=== PATIENT | female | born 1980 | race Caucasian/White ===

== ENCOUNTER 2017-09-04 15:13 | Emergency (ER) | payer MEDICAID, SELFPAY ==
[2017-09-04 15:14] VITALS: BP 138/77; PULSE 89; RESP 16; TEMP 36.7; O2SAT 97
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
[2017-09-04] MEDS: Ibuprofen 600 MG Tablet PO (16:28)
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
[2017-09-04 17:04] VITALS: RESP 18
== END 2017-09-04 17:06 | disposition home or self-care (01) ==
PROVIDERS: Emergency Provider Emergency Medicine; Family Provider Family Medicine; PCP Family Medicine
DX: S00.11XA Contusion of right eyelid and periocular area, initial encounter (principal); S50.01XA Contusion of right elbow, initial encounter; S40.021A Contusion of right upper arm, initial encounter; R40.2410 Glasgow coma scale score 13-15, unspecified time; Y04.2XXA Assault by strike against or bumped into by another person, initial encounter; Y93.9 Activity, unspecified; Y92.9 Unspecified place or not applicable; Z90.89 Acquired absence of other organs
CPT/HCPCS: 70450; 70486; 73080; 99283

== ENCOUNTER 2017-10-27 16:10 | Emergency (ER) | payer MEDICAID, SELFPAY ==
[2017-10-27 16:11] VITALS: BP 100/75; PULSE 85; RESP 16; TEMP 36.6; O2SAT 99; BMI 20.7
[2017-10-27] MEDS: HYDROmorphone 1 MG/ML Syringe IV (16:33)
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
--- NOTE | 2017-10-27 17:21 | ED.DEP ---
ED Disposition - Plan for ED Patient: Chief Complaint: Abscess Instructions: ED Abscess IandD, ED Bartholins Cyst IandD Prescriptions: Hydrocodone Bitart/Apap 5-325 [[place] 5MG-325MG] 1 tablet PO Q6H PRN PRN 3 Days #10 tablet PRN Reason: Pain Clindamycin [Cleocin] 450 mg PO 4X/DAY #84 capsule Referrals: Sabi Moyer CNM [Certified Nurse Cytotechnologist] - 2 Days
[2017-10-27] MEDS: Clindamycin HCl 150 MG Capsule 450 MG PO (17:24)
[2017-10-27] MEDS: HYDROcodone Bitartrate/Apap 5/325 Tablet PO (17:24)
--- NOTE | 2017-10-27 17:24 | DCINST.ED_ITS ---
ED Disposition - Plan for ED Patient: Chief Complaint: Abscess Instructions: ED Abscess IandD, ED Bartholins Cyst IandD Prescriptions: Hydrocodone Bitart/Apap 5-325 [[place] 5MG-325MG] 1 tablet PO Q6H PRN PRN 3 Days # 10 tablet PRN Reason: Pain Clindamycin [Cleocin] 450 mg PO 4X/DAY #84 capsule Referrals: Sabi Moyer CNM [Certified Nurse Bicycle Fitter] - 2 Days
[2017-10-27 17:43] VITALS: BP 113/73; PULSE 16
== END 2017-10-27 17:45 | disposition home or self-care (01) ==
LOC: ED 16:44
PROVIDERS: Emergency Provider Emergency Medicine; Family Provider Family Medicine; PCP Family Medicine
DX: N75.0 Cyst of Bartholin's gland (principal); N76.2 Acute vulvitis
CPT/HCPCS: 56420; 10060; 96374; 99285; A4216

== ENCOUNTER 2018-01-30 07:42 | Emergency (ER) | payer MEDICAID, SELFPAY ==
[2018-01-30 07:42] VITALS: BP 115/69; PULSE 81; RESP 18; TEMP 36.6; O2SAT 99; BMI 20.7
--- NOTE | 2018-01-30 07:54 | ED.VISSUMM ---
- ER Visit Summary Date of Service: 01/30/18 Chief Complaint: Upper and mid back pain History of Present Illness: The patient is a 38 F prior history of DVT secondary to control pills currently on no anticoagulation. States that they were cutting down trees yesterday and moving them. She was carrying branches and logs. Today she is developed upper back and mid back discomfort. She denies any numbness or weakness. She denies any bowel or bladder incontinence. She denies any fever. She denies any trauma or falls. She denies any weakness or numbness in her lower extremities. She has never had back surgery. Physical Examination: Well-appearing female. Vital signs are stable afebrile. H EENT exam unremarkable. Neck nontender. No lymphadenopathy. Normal range of motion. Lungs clear to auscultation. Heart regular rhythm no murmur. Abdomen soft and nontender. Normal bowel sounds no peritoneal signs. She is moving all 4 extremities. They are neurovascularly intact. No cauda equina. No saddle anesthesia. Normal 5 out of 5 therapeutic riding instructor strength in both hands. Normal dorsi and plantar flexion of both lower extremities. Normal sensation. Back exam there is no spine tenderness. There is para thoracic soft tissue tenderness and in the upper back. This is consistent with muscle strain and spasm. There are no bony deformities. There are no bruising. There is no redness or discoloration. She has a large tattoo on her back. Neurologically she is awake alert with no focal motor or sensory deficits. NIH score is 0. Test Results: None Emergency Department Course and Treatment: Patient will be treated for myofascial strain and spasm. Treatment Plan: Massage. Hot shower, warm bath and anti-inflammatories. Flexeril as needed for muscle spasm. Disposition: Discharge Impression: Acute back pain and muscle spasm This note was generated with [employer] dictation software. It may contain incorrect words, spelling, and punctuation that were not noted in review of the chart prior to signing ED Disposition - Plan for ED Patient: Chief Complaint: Back Referrals: Kobe Rey MD [Primary Care Provider] -
--- NOTE | 2018-01-30 07:57 | ED.DCSUM_ITS ---
- ER Visit Summary Date of Service: 01/30/18 Chief Complaint: Upper and mid back pain History of Present Illness: The patient is a 38 F prior history of DVT secondary to control pills currently on no anticoagulation. States that they were cutting down trees yesterday and moving them. She was carrying branches and logs. Today she is developed upper back and mid back discomfort. She denies any numbness or weakness. She denies any bowel or bladder incontinence. She denies any fever. She denies any trauma or falls. She denies any weakness or numbness in her lower extremities. She has never had back surgery. Physical Examination: Well-appearing female. Vital signs are stable afebrile. H EENT exam unremarkable. Neck nontender. No lymphadenopathy. Normal range of motion. Lungs clear to auscultation. Heart regular rhythm no murmur. Abdomen soft and nontender. Normal bowel sounds no peritoneal signs. She is moving all 4 extremities. They are neurovascularly intact. No cauda equina. No saddle anesthesia. Normal 5 out of 5 research and development director strength in both hands. Normal dorsi and plantar flexion of both lower extremities. Normal sensation. Back exam there is no spine tenderness. There is para thoracic soft tissue tenderness and in the upper back. This is consistent with muscle strain and spasm. There are no bony deformities. There are no bruising. There is no redness or discoloration. She has a large tattoo on her back. Neurologically she is awake alert with no focal motor or sensory deficits. NIH score is 0. Test Results: None Emergency Department Course and Treatment: Patient will be treated for myofascial strain and spasm. Treatment Plan: Massage. Hot shower, warm bath and anti-inflammatories. Flexeril as needed for muscle spasm. Disposition: Discharge Impression: Acute back pain and muscle spasm This note was generated with [employer] dictation software. It may contain incorrect words, spelling, and punctuation that were not noted in review of the chart prior to signing ED Disposition - Plan for ED Patient: Chief Complaint: Back Referrals: Kobe Rey MD [Primary Care Provider] -
--- NOTE | 2018-01-30 07:57 | ED.DEP ---
ED Disposition - Plan for ED Patient: Disposition: Home or Assisted Living Chief Complaint: Back Instructions: ED Spasm Back No Trauma Prescriptions: Cyclobenzaprine [Flexeril] 10 mg PO TID #20 tab Referrals: Kobe Rey MD [Primary Care Provider] - 1 Week if not improving Additional Instructions: Hot shower, warm bath, and massage to her back. Motrin for pain and inflammation. Flexeril as a muscle relaxant.
== END 2018-01-30 08:10 | disposition home or self-care (01) ==
LOC: ED 08:03
PROVIDERS: Emergency Provider Emergency Medicine; Family Provider Family Medicine; PCP Family Medicine
DX: M54.9 Dorsalgia, unspecified (principal); M62.830 Muscle spasm of back; Z86.718 Personal history of other venous thrombosis and embolism; F17.200 Nicotine dependence, unspecified, uncomplicated
CPT/HCPCS: 99282

== ENCOUNTER 2018-05-28 08:51 | Emergency (ER) | payer MEDICAID, SELFPAY ==
[2018-05-28 08:51] VITALS: BP 121/88; PULSE 101; RESP 18; TEMP 36.6; O2SAT 100; BMI 20.1
--- NOTE | 2018-05-28 09:09 | RAD_ITS ---
STUDY: X-RAY CHEST REASON FOR EXAM: Female, 38 years old. COUGH, FEVER, CONGESTION X 2 DAYS TECHNIQUE: PA and lateral views of the chest. COMPARISON: None. FINDINGS: The lungs are clear and expanded. There is no demonstrated pleural abnormality. Normal size heart. Normal mediastinum and sushil. Normal visualized pulmonary arteries. Normal visualized aortic arch and descending thoracic aorta. There is a mild broad dextroscoliosis of the thoracic spine. Normal visualized ribs, clavicles, and shoulders. There is no demonstrated abnormality of the visualized soft tissue structures of the upper abdomen. RAD/Chest PA and Lateral IMPRESSION: Normal x-ray examination of the chest. No focal lung infiltrate. Electronically Signed: Staci Yu MD at 9:48 EST , Service support ,
--- NOTE | 2018-05-28 09:14 | ED.DCSUM_ITS ---
- ER Visit Summary Date of Service: 05/28/18 Chief Complaint: Cough History of Present Illness: The patient is a 38 F no significant past medical history. Patient says she has had URI type symptoms for approximately the last week. She is been doing a lot of coughing. Says she has left chest wall pain w ith deep breathing or coughing. States that the nonproductive cough. She subjectively had a fever. She denies any hemoptysis. Leg pain or swelling. She is never had a DVT or PE. She denies any significant shortness of breath. Physical Examination: Appearing female. Vital signs are stable. She is afebrile. Pulse ox 100% on room air no signs of hypoxia. HEENT exam normal. Posterior pharynx moist and pink. No erythema or exudate. TMs are normal. Neck nontender. No lymphadenopathy. Lungs clear to auscultation bilaterally. Heart regular rhythm no murmur. Chest wall reproducible left chest wall pain in the left upper chest. There is no ecchymosis or bruising. No crepitance. No bony deformities. No subcu air. This appears to be a chest wall strain. Ab domen soft nontender. Normal bowel sounds no peritoneal signs. Extremities moves all 4. Neurovascular intact. Equal symmetrical radial pulses. Equal symmetrical white hat hacker strength. Dorsi plantar flexion intact. Calves nontender no edema. Back exam normal. Neurologically she is awake alert with no focal motor deficits. Test Results: Two-view chest x-ray AP and lateral was normal. Normal cardiac silhouette. No infiltrate. No pneumothorax. Normal bony structures. I did go over the films with the patient. Emergency Department Course and Treatment: Viral URI treated symptomatically. Treatment Plan: Motrin and Tylenol for pain. Disposition: Discharge Impression: Acute viral respiratory infection with chest wall strain This note was generated with [employer] dictation software. It may contain incorrect words, spelling, and punctuation that were not noted in review of the chart prior to signing ED Disposition - Plan for ED Patient: Chief Complaint: Cold Sx Referrals: Kobe Rey MD [Primary Care Provider] -
--- NOTE | 2018-05-28 09:42 | ED.DEP ---
ED Disposition - Plan for ED Patient: Disposition: Home or Assisted Living Chief Complaint: Cold Sx Instructions: ED Upper Resp Infec No Abx Tx, ED Strain Chest Wall Referrals: Kobe Rey MD [Primary Care Provider] - As Needed Additional Instructions: Light duty for 1 week. You have strained muscles in your left upper chest wall. Ice to the area. Tylenol and Motrin for pain.
[2018-05-28 09:59] VITALS: BP 124/69; PULSE 72; RESP 15; O2SAT 99
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
== END 2018-05-28 10:01 | disposition home or self-care (01) ==
PROVIDERS: Emergency Provider Emergency Medicine; Family Provider Family Medicine; PCP Family Medicine
DX: J06.9 Acute upper respiratory infection, unspecified (principal); S29.011A Strain of muscle and tendon of front wall of thorax, initial encounter; X58.XXXA Exposure to other specified factors, initial encounter; Y93.9 Activity, unspecified; Y92.9 Unspecified place or not applicable; Z72.0 Tobacco use
CPT/HCPCS: 71046; 99282

== ENCOUNTER 2020-02-09 17:48 | Emergency (ER) | payer MEDICAID, SELFPAY ==
[2020-02-09 17:49] VITALS: BP 127/83; PULSE 97; RESP 16; TEMP 36.6; O2SAT 99; BMI 20.3
--- NOTE | 2020-02-09 18:00 | ED.VIS.GEN ---
History of Present Illness Chief Complaint: Back Informant: Patient Narrative: 40-year-old female presenting with right upper back muscle spasms. She states this occurred when she woke up from sleep. She denies any trauma. She is never had a symptom like this before. She denies medical problems. She states that when she takes a deep breath the pain radiates into her ribs. She does not have shortness of breath, cough, fever, chills. Past Medical History - Allergies and Home Meds Allergies/Adverse Reactions: Allergies diphenhydramine [From Benadryl] Allergy (Verified 02/09/20 17:48) Vomiting Primary Care Physician: Kobe Rey MD [Primary Care Provider] - Prior records reviewed: Yes Surgical History: appendectomy, - - section Lives: Spouse/ Significant Other Smoking Status: Former smoker Alcohol: None Drugs: None - Family History Maternal Family History: Reports: No pertinent history Paternal Family History: Reports: No pertinent history Review of Systems General: Denies: Chills, Fever, Sweats Eyes: Denies: Visual changes - bilaterally, Diplopia ENT: Denies: Rhinorrhea, Sore throat Cardiovascular: Denies: Chest pain, Palpitations Respiratory: Denies: Dyspnea, Cough, Dyspnea on exertion Gastrointestinal: Denies: Abdominal pain, Nausea, Vomiting, Diarrhea, Melena, Hematochezia Genitourinary: Denies: Dysuria, Hematuria, Frequency Musculoskeletal: Reports: - - Upper back pain Skin: Denies: Rash, Abscess Physical Exam Vital Signs/Narrative: Vital Signs Temp Pulse Resp BP Pulse Ox 02/09/20 17:49 97.8 F 97 16 127/83 H 99 General: Well nourished, Well developed, No Acute Distress Head: Normocephalic, Atraumatic Eyes: Perrl, EOMI ENT: Moist mucous membranes, No rhinorrhea Cardiovascular: Regular rate, Regular rhythm, No murmurs Respiratory: No distress, CTA bilaterally, Chest nontender Back: - - Tenderness to palpation in the right thoracic paraspinal musculature. There is no midline spinal tenderness, deformity, step-off. Skin: Normal color, No rash Neurological: Alert, Oriented x3 Psychological: Normal affect, Normal Mood Diagnostic/Tx/Re-eval Clinical Impression(s) from Imaging Studies Ribs w/Chest X-Ray 02/09/20 18:05 IMPRESSION: RIBS: Normal x-ray examination of the ribs. CHEST: Normal x-ray examination of the chest. Electronically Signed: Maurilio Ayde, at 18:30 EDT Tel , Service support , - Medical Decision Making Patient presents with muscle spasm in the right thoracic paraspinal musculature. This is reproducible on exam. Given Norflex and Naprosyn in the ED. I checked her right rib series which was negative. Patient is comfortable on reevaluation. I will discharge her home with a prescription for Flexeril. Impression: 1. Thoracic strain ED Disposition - Plan for ED Patient: Disposition: Home or Assisted Living Instructions: ED Spasm Back No Trauma Prescriptions: cycloBENZAPRine HCl [Flexeril] 10 mg PO TID PRN #20 tab PRN Reason: Muscle Spasm Transmission Status: Received by [id number] Referrals: Kobe Rey MD [Primary Care Provider] -
[2020-02-09] MEDS: Naproxen 500 MG Tablet PO (18:04)
--- NOTE | 2020-02-09 18:05 | RAD_ITS ---
STUDY: X-RAY - UNILATERAL RIBS ( RIGHT ) WITH CHEST REASON FOR EXAM: Female, 40 years old. RIGHT POSTERIOR RIB PAIN THAT STARTED TODAY. NO KNOWN CAUSE. TECHNIQUE - RIBS: 2 view(s) of the ribs. TECHNIQUE - CHEST: 1 COMPARISON: None. FINDINGS - RIBS: Normal visualized ribs without a demonstrated fracture. FINDINGS - CHEST: The lungs are clear and expanded. There is no demonstrated pleural abnormality. Normal size heart. Normal mediastinum and sushil. Normal visualized pulmonary arteries. Normal visualized aortic arch and descending thoracic aorta. Normal visualized thoracic spine. Normal visualized ribs, clavicles, and shoulders. There is no demonstrated abnormality of the visualized soft tissue structures of the upper abdomen. RAD/Ribs Uni Min 3V w/PA Chest IMPRESSION: RIBS: Normal x-ray examination of the ribs. CHEST: Normal x-ray examination of the chest. Electronically Signed: Maurilio Messer, at 18:30 EDT Tel , Service support ,
== END 2020-02-09 19:16 | disposition home or self-care (01) ==
LOC: ED 19:07
PROVIDERS: Emergency Provider Student in an Organized Health Care Education/Training Program; PCP Family Medicine
DX: S29.012A Strain of muscle and tendon of back wall of thorax, initial encounter (principal); X58.XXXA Exposure to other specified factors, initial encounter; Y93.9 Activity, unspecified; Y92.9 Unspecified place or not applicable; Z87.891 Personal history of nicotine dependence
CPT/HCPCS: 71101; 99283

== ENCOUNTER 2020-03-30 13:31 | Emergency (ER) | payer MEDICAID, SELFPAY ==
[2020-03-30 13:33] VITALS: BP 103/67; PULSE 102; RESP 18; TEMP 36.4; O2SAT 98; BMI 19.8
[2020-03-30 13:37] VITALS: BP 103/67; PULSE 102; RESP 18; TEMP 36.4; O2SAT 99
--- NOTE | 2020-03-30 14:18 | ED.VIS.GEN ---
History of Present Illness Chief Complaint: Fatigue Narrative: Patient presenting for evaluation secondary to generalized malaise, headache, fatigue, and abdominal pain. Patient reports that since Friday she has been dealing with the above symptoms. The been associated with nausea, but no vomiting. No diarrhea or change in color or character of the stools. She denies any objective fevers associated with this. No cough or sore throat. She does have a mild amount of nasal congestion. Patient states that intermittently she will get epigastric abdominal pain that will be very sharp and will radiate through to her back. Is not necessarily associated with any exacerbating relieving factors, not associated with food. She is never had any prior similar episodes in the past. She does have a history of prior appendectomy. Patient also has a history of sick contacts at work that have tested positive for coronavirus. Review of systems otherwise negative. Past Medical History - Allergies and Home Meds Allergies/Adverse Reactions: Allergies diphenhydramine [From Benadryl] Allergy (Verified 02/09/20 17:48) Vomiting Primary Care Physician: Kobe Rey MD [Primary Care Provider] - Prior records reviewed: Yes Past Medical History: - - Endometriosis, DVT Surgical History: appendectomy, - - section Lives: With Family Smoking Status: Current every day smoker Alcohol: None Drugs: None - Family History Maternal Family History: Reports: No pertinent history Paternal Family History: Reports: No pertinent history Review of Systems All systems negative except as indicated General: Reports: Malaise Eyes: Denies: Visual changes - bilaterally, Diplopia ENT: Denies: Rhinorrhea, Sore throat Cardiovascular: Denies: Chest pain, Palpitations Respiratory: Denies: Dyspnea, Cough, Dyspnea on exertion Gastrointestinal: Reports: Abdominal pain, Nausea. Denies: Vomiting, Diarrhea Genitourinary: Denies: Dysuria, Hematuria, Frequency Musculoskeletal: Denies: Back pain, Extremity Pain Skin: Denies: Rash, Wounds Neurological: Reports: Headache Physical Exam Vital Signs/Narrative: Vital Signs Temp Pulse Resp BP Pulse Ox 03/30/20 13:37 97.5 F L 102 H 18 103/67 99 03/30/20 13:33 97.5 F L 102 H 18 103/67 98 Inital Vital Signs reviewed: Yes General: Well nourished, Well developed, No Acute Distress Head: Normocephalic, Atraumatic Eyes: Perrl, EOMI ENT: Moist mucous membranes, No rhinorrhea Neck: Supple, Nontender Cardiovascular: Regular rhythm, No murmurs, Tachycardia - mild Respiratory: No distress, CTA bilaterally, Chest nontender Abdomen: Soft, Nondistended, Normal bowel sounds, Tender - Epigastric with no guarding or rebound. No palpable masses. Back: Nontender, Normal Inspection Extremities: Nontender, No edema Skin: Normal color, No rash Neurological: Alert, Oriented x3, Cranial nerves II-XII grossly intact, Normal Strength, Normal Sensation Psychological: Normal affect, Normal Mood Diagnostic/Tx/Re-eval Laboratory Data 03/30/20 03/30/20 14:15 14:15 WBC 7.0 RBC 4.45 Hgb 11.1 L Hct 36.5 L MCV 82.0 MCH 24.9 L MCHC 30.4 L RDW Std Deviation 50.4 H RDW Coeff of Chris 16.9 H Plt Count 307 MPV 11.1 Immature Gran % (Auto) 0.100 Neut % (Auto) 64.3 Lymph % (Auto) 19.3 Foard % (Auto) 8.9 Eos % (Auto) 6.7 H Baso % (Auto) 0.7 Absolute Neuts (auto) 4.5 Absolute Lymphs (auto) 1.35 Nucleated RBC % 0 Sodium 142 Potassium 3.6 Chloride 111 H Carbon Dioxide 27.0 Anion Gap 4 L BUN 13 Creatinine 0.68 Estim Creat Clear Calc 98.48 Est GFR (MDRD) Af Amer 122 Est GFR (MDRD) Non-Af 100 BUN/Creatinine Ratio 19.0 Glucose 96 Calcium 8.6 Total Bilirubin 0.40 AST 13 L ALT 22 Alkaline Phosphatase 87 Total Protein 6.5 Albumin 3.3 Globulin 3.2 Albumin/Globulin Ratio 1.0 Lipase 214 - Medical Decision Making Patient presented secondary to generalized illness. IV was established she was given fluids Toradol and Zofran. She had symptomatic improvement on repeat evaluation at 1500. Patient's lab work was not indicative of serious infection or pancreatitis or gallbladder disease, CBC CMP and lipase were within normal limits. Patient did have a coronavirus test sent but is pending at this time as she does have sick contacts. Due to the patient's nontoxic appearance, stable vitals, general good health I believe that she is stable and appropriate for discharge. She will be sent home with [facility] to control her nausea she was instructed to quarantine until she receives the results of her coronavirus test. Patient was discharged in stable condition. ED Disposition - Plan for ED Patient: Disposition: Home or Assisted Living Diagnosis: Suspected COVID-19 virus infection Instructions: Coronavirus Disease 2019 (COVID-19), ED Viral Syndrome Prescriptions: Ondansetron [Zofran Odt] 4 mg PO Q8H PRN PRN #10 tab PRN Reason: Nausea Prescription Printed Referrals: Kobe Rey MD [Primary Care Provider] - 1 Week if not improving
[2020-03-30] MEDS: Ketorolac 15 MG/ML Vial IV (14:24)
[2020-03-30] MEDS: Ondansetron 4 MG/2 ML Vial IV (14:24)
[2020-03-30] MEDS: 0.9% Normal Saline 1,000 ML 125 ML IV (14:25)
[2020-03-30 14:30] LABS: Absolute Lymphocyte Count 1.35 X10^3/uL (0.83-4.51); Absolute Neutrophil Count 4.5 X10^3/uL (2.0-7.7); Basophil# 0.05 X10^3/uL; Basophil% 0.7 % (0-1); Eosinophil# 0.47 X10^3/uL; Eosinophils% 6.7 % (0-5); Hematocrit 36.5 % (37-47); Hemoglobin 11.1 g/dL (12.0-15.0); Lymphocyte # 1.35 X10^3/ul (4.0); Lymphocyte % 19.3 % (19-41); Mean Corp Hgb Conc 30.4 g/dL (32-36); Mean Corpuscular Hgb 24.9 pg (27.0-32.0); Mean Platelet Vol. 11.1 fl (6.2-12.0); Monocyte# 0.62 X10^3/uL; Monocyte% 8.9 % (0-10); NRBC Flagged by Analyzer 0 % (0-5); Neutrophil # 4.49 X10^3/uL (2.7-7.7); Neutrophil % 64.3 % (47-70); Platelet Count 307 K/mm3 (150-450); RBC Distribution Width CV 16.9 % (11.6-14.6); RBC Distribution Width SD 50.4 fl (35.1-43.9); Red Blood Count 4.45 M/mm3 (4.2-5.4)
[2020-03-30 14:48] LABS: AST(SGOT) 13 U/L (15-37); Alanine Aminotransfer ALT/SGPT 22 U/L (13-56); Albumin, Serum 3.3 g/dL (3.2-5.0); Alkaline Phosphatase 87 U/L (45-117); Anion Gap 4 (5-15); BUN 13 mg/dL (7-18); Calcium,Total 8.6 mg/dL (8.5-10.1); Chloride 111 mmol/L (98-107); Creatinine, Serum 0.68 mg/dL (0.55-1.02); EST Glomerular Filtration Rate 100 mL/min (>60); Est Glom Filt Rate - Afr Amer 122 mL/min (>60); Estimated Creatinine Clearance 98.48 ml/min; Globulin 3.2 g/dL (2.2-4.2); Glucose 96 mg/dL (74-106); Lipase 214 U/L (73-393); Potassium 3.6 mmol/L (3.5-5.1); Protein, Total 6.5 g/dL (6.4-8.2); Sodium Level 142 mmol/L (136-145)
[2020-03-30 15:18] VITALS: BP 115/74; PULSE 81; RESP 16; O2SAT 97
--- NOTE | 2020-03-30 15:20 | ED.RN ---
THIS NURSE REVIEWED D/C INSTRUCTIONS WITH PT. PT VERBALIZED UNDERSTANDING OF INSTRUCTIONS. IV D/C. IV CATHETER INTACT. PT TOLERATED WELL. PT DENIES FURTHER NEEDS OR QUESTIONS AT THIS TIME
== END 2020-03-30 15:21 | disposition home or self-care (01) ==
PROVIDERS: Emergency Provider Emergency Medicine; PCP Family Medicine
DX: R53.83 Other fatigue (principal); R51.9 Headache, unspecified; R53.81 Other malaise; R10.9 Unspecified abdominal pain; R11.0 Nausea; Z20.828 Contact with and (suspected) exposure to other viral communicable diseases; N80.9 Endometriosis, unspecified; Z86.718 Personal history of other venous thrombosis and embolism; F17.200 Nicotine dependence, unspecified, uncomplicated
CPT/HCPCS: 80053; 83690; 85025; 87635; 96361; 96374; 96375; 99283; J7030; A4216; J2405; U0003

== ENCOUNTER 2024-10-29 09:00 | Emergency (ER) | payer OTHER, SELFPAY ==
[2024-10-29 09:02] VITALS: BP 128/88; PULSE 97; RESP 16; TEMP 36.6; O2SAT 98; BMI 26.6
--- NOTE | 2024-10-29 09:52 | ED.VIS.FEGU ---
HPI HPI - Female History of Present Illness Chief Complaint: Female C/O Informant: patient Narrative Narrative: Patient is a 44-year-old female with history of DVT, tubal ligation and possible endometriosis presenting with complaint of sore throat (worse on the right) as well as right back pain. Patient states she has had a consultation with symptoms and she was concerned that they could be related to her skin for evaluation. She notes a week and a half ago she had a cramping pain in her right lower quadrant after intercourse. Progress throughout the night. She ended up vomiting because of so painful. She states that that pain has resolved but she has gone on to have this right lower back/hip pain. She states her skin is painful to the touch with light touch but with deeper touch it does not hurt. Pain is worse when she moves or just goes to stand but does seem to improve with movement itself. She does have a history of prior appendectomy. She has had some urinary frequency but denies any dysuria, hematuria or change in its odor. Notes that she did recently start her menstrual cycle as well so she is currently vaginal bleeding. Denies any concern for sexually-transmitted infection and denies any abnormal vaginal discharge. She awoke with sore throat today that worsened while she was at work and tried to eat her breakfast. It is worse on the right. It was so painful when she was eating her breakfast sausage (she is not sure if it is because of the pepperoni) that she felt like she could not swallow and then started feeling she was choking and threw up. Since then she has also had some pain rating to her right ear. She denies any associated rash. Currently does not feel nauseous. Denies any fevers. Due to all of the symptoms over the past week and a half she came in for evaluation. She went to urgent care but was sent to the ER. Denies any trauma or injuries. [facility] Home Medications ?Medication ?Instructions ?Recorded ?Last Taken ?Type hydrocodone-acetaminophen 5-325mg 1 tab PO Q8H PRN Pain 3 days #10 10/29/24 Unknown Rx 5mg-325mg TABLETS ibuprofen 600 mg tablet 600 mg PO Q6H PRN PRN pain #20 10/29/24 Unknown Rx TABLETS ondansetron 4 mg disintegrating 4 mg PO Q8H PRN PRN Nausea #10 tabs 10/29/24 Unknown Rx tablet tamsulosin 0.4 mg capsule (Flomax) 0.4 mg PO DAILY #7 caps 10/29/24 Unknown Rx Allergy/AdvReac Type Severity Reaction Status Date / Time diphenhydramine (From Allergy Vomiting Verified 10/29/24 09:05 Benadryl) Surgical History No pertinent past surgical history Social History (Updated 10/29/24 @ 11:24 by Adeline Gonzalez) current occupational status: employed Smoking Status: Current every day smoker tobacco type: cigarettes ROS ROS ED Constitutional Constitutional ED: Denies chills or fever(s) ENT ENT ED: Reports ear pain right and sore throat; Denies rhinorrhea Cardiovascular Cardiovascular: Denies chest pain or palpitations Respiratory/Chest Respiratory/Chest: Denies cough or dyspnea Gastrointestinal Gastrointestinal: Reports abdominal pain, vomiting and other Details: Abdominal pain and nausea/vomiting is currently resolved ; Denies diarrhea Genitourinary Genitourinary ED: Denies dysuria or urinary frequency Musculoskeletal Musculoskeletal: Reports other Details: right lower back pain Integumentary Denies rash Neurologic Neurologic: Denies paresthesias Hematologic/Lymphatic Hematologic/Lymphatic: Denies easy bleeding or easy bruising EXAM Physical Exam Const Vital Signs: 10/29/24 09:02 10/29/24 11:02 Temperature 97.9 F Temperature Source Oral Pulse Rate 97 90 Respiratory Rate 16 15 Blood Pressure 128/88 H 127/80 H Blood Pressure Mean 101 95 Pulse Ox 98 98 Oxygen Delivery Method Room Air Positive well nourished and well developed General Appearance ED: well developed and NAD HEENT Reports TM's clear and moist mucous membranes HEENT Narrative: Mild injection of the posterior oropharynx. Uvula is midline. No hypertrophy of the tonsils. No exudate appreciated. Tympanic Membrane ED: Yes TM's clear Eyes PERRL Neck no lymphadenopathy, supple and no JVD Chest Wall inspection of chest normal and palpation of chest normal Resp normal respiratory effort and clear to auscultation bilaterally Cardio regular rate and regular rhythm GI normal to inspection, nondistended, normoactive bowel sounds, soft to palpation and non-tender GI Narrative: No inguinal hernia appreciated Back/Spine Back/Spine Narrative: Mild tenderness of the right CVA but more pronounced tenderness with palpation of the right lower lumbar back. No overlying skin changes present. Negative straight leg test bilaterally Extremity normal to inspection and full ROM Extremity Narrative: No obvious deformity of the extremities. No pinpoint bony tenderness. There is increased pain of the right hip with external rotation. Neuro oriented x3 and no sensory deficits noted Sensorium / Orientation: alert Motor Exam: strength 5/5 throughout; Negative for general weakness Psych mental status grossly normal Skin no rashes or lesions noted and no wounds MDM MDM MDM Narrative Medical decision making narrative: Patient evaluated for new sore throat today and a week and a half of progressing right lower back pain. Initially had an episode of right lower quadrant pain. Vital signs are normal. Patient overall is well-appearing. Lower suspicion for severe systemic process. Differential does include ruptured ovarian cyst, ectopic , muscle skeletal pain, pyelonephritis/urinary tract infection, renal colic, strep pharyngitis, nephrotic syndrome (suspect this is less likely especially she does not have any edema and is overall well-appearing). Will obtain workup including urinalysis, urine test?to rule out ectopic , CBC, CMP (pain is right-sided) CT flank for better evaluation of the right lower quadrant, right kidney and hip as well as strep swab. Patient given IV Toradol for discomfort in the emergency room. Lab work normal. No leukocytosis. Kidney function normal. Urine test negative. Suspicion for intact . There is blood in the urine however is also contaminated. CT of the flank does show 2 mm calculus in the midportion of the right ureter. This is consistent her presentation I suspect she is having renal colic as a cause of her pain. She has improvement of symptoms with Toradol. We discharged home with symptomatic treatment of her kidney stone as well as outpatient urology follow-up. Her strep swab was negative and she states her sore throat has improved. I do not think this requires further emergent workup. Patient given return precautions. Her and her fianc? given work notes as they are seen in the ER today. Discharged home in stable condition. Lab Data Attestation: I reviewed the patient's lab results. Labs: Laboratory Results - last 24 hr 10/29/24 10/29/24 10:00 10:04 WBC 6.4 RBC 4.67 Hgb 12.5 Hct 39.2 MCV 83.9 MCH 26.8 L MCHC 31.9 L RDW Std Deviation 47.0 H RDW Coeff of Chris 15.3 H Plt Count 242 MPV 11.0 Immature Gran % (Auto) 0.300 Neut % (Auto) 68.2 Lymph % (Auto) 18.3 L Clark % (Auto) 9.9 Eos % (Auto) 2.5 Baso % (Auto) 0.8 Absolute Neuts (auto) 4.4 Absolute Lymphs (auto) 1.17 Nucleated RBC % 0 Sodium 138 Potassium 4.0 Chloride 106 Carbon Dioxide 21.5 Anion Gap 10 BUN 14 Creatinine 0.68 L Estim Creat Clear Calc 111.95 Est GFR (MDRD) Non-Af 109 BUN/Creatinine Ratio 20.7 H Glucose 88 Calcium 8.8 Total Bilirubin 0.45 AST 22 ALT 11 Alkaline Phosphatase 93 Total Protein 6.4 Albumin 3.8 Globulin 2.6 Albumin/Globulin Ratio 1.4 Urine Color Yellow Urine Clarity Sl. Cloudy Urine pH 6.0 Ur Specific [place] 1.020 Urine Protein 100 H Urine Glucose (UA) Normal Urine Ketones Negative Urine Occult Blood 250 H Urine Nitrite Negative Urine Bilirubin Negative Urine Urobilinogen Normal Ur Leukocyte Esterase 25 H Urine RBC 10-25 SEEN Urine WBC 0-5 SEEN Ur Squamous Epith Cells 0-5 SEEN Urine Bacteria 3+ Urine Mucus 1+ Urine Test Negative Radiography Diagnostic Testing: Clinical Impression(s) from Imaging Studies Abdomen/Pelvis CT 10/29/24 10:57 IMPRESSION: 2 mm calculus in the midportion of the right ureter. Small right renal cyst. Small right pleural effusion with right basilar atelectasis. Reading Location: [place] [id number] Discharge Plan Triage Chief Complaint: Female C/O ED Provider: Emily Elliott Dx/Rx/DC Orders Clinical Impression: Renal colic on right side, Calculus of right ureter, Acute sore throat Instructions: ED Kidney Stone with Pain Prescriptions: New tamsulosin [Flomax] 0.4 mg capsule 0.4 mg PO DAILY Qty: 7 0RF ibuprofen 600 mg tablet 600 mg PO Q6H PRN PRN (Reason: pain) Qty: 20 0RF ondansetron 4 mg tablet,disintegrating 4 mg PO Q8H PRN PRN (Reason: Nausea) Qty: 10 0RF hydrocodone-acetaminophen 5-325 mg tablet 1 tab PO Q8H PRN (Reason: Pain) 3 Days Qty: 10 0RF Stand Alone Forms: ED Work / School Excuse, Work / School Excuse Primary Care Provider: Kobe Rey Referrals: Brandon Garcia MD [Med Staff - Active Staff] - Kobe Rey MD [Primary Care Provider] - Activity Restrictions/Additional Instructions: You have a 2 mm kidney stone on the right. It should pass spontaneously. You been given medications to help it pass (a Flomax) to take every day. Take the Stephens only as needed for breakthrough pain (hydrocodone). Follow-up with urology. Make sure you are drinking plenty of fluids. Print Language: Colombian Disposition Disposition: Home, Self Care
[2024-10-29 10:12] LABS: Absolute Lymphocyte Count 1.17 X10^3/uL (0.83-4.51); Absolute Neutrophil Count 4.4 X10^3/uL (2.0-7.7); Basophil# 0.05 X10^3/uL; Basophil% 0.8 % (0-1); Eosinophil# 0.16 X10^3/uL; Eosinophils% 2.5 % (0-5); Hematocrit 39.2 % (37-47); Hemoglobin 12.5 g/dL (12.0-15.0); Lymphocyte # 1.17 X10^3/ul (0.83-4.51); Lymphocyte % 18.3 % (19-41); Mean Corp Hgb Conc 31.9 g/dL (32-36); Mean Corpuscular Hgb 26.8 pg (27.0-32.0); Mean Corpuscular Volume 83.9 fL (81-99); Monocyte# 0.63 X10^3/uL; Monocyte% 9.9 % (0-10); NRBC Flagged by Analyzer 0 % (0-5); Neutrophil # 4.35 X10^3/uL (2.7-7.7); Neutrophil % 68.2 % (47-70); Platelet Count 242 K/mm3 (150-450); RBC Distribution Width CV 15.3 % (11.6-14.6); Red Blood Count 4.67 M/mm3 (4.2-5.4); White Blood Count 6.4 K/mm3 (4.4-11.0)
[2024-10-29 10:20] LABS: Color, Urine Yellow (Yellow); Glucose, Dipstick Normal (Normal); Ketone-Dipstick Negative (Negative); Leukocyte Esterase-Dipstick 25 /ul (Negative); Nitrite-Dipstick Negative (Negative); Occult Blood-Urine 250 /ul (Negative); Protein-Dipstick 100 mg/dl (Negative); Urine Bilirubin Dipstick Negative (Negative); Urine Clarity Sl. Cloudy (Clear); Urine Urobilinogen Normal (Normal)
[2024-10-29] MEDS: Ketorolac 15 MG/ML Vial IV (10:21)
[2024-10-29 10:22] LABS: Internal QC Validated? YES +Cl - CLEAR BKGD; Pregnancy, Urine Negative Negative
[2024-10-29 10:24] LABS: Red Blood Cells-Urine 10-25 SEEN /hpf (0-5); Squamous Epithelial Cells - UA 0-5 SEEN /hpf (5-10); White Blood Cells 0-5 SEEN /hpf (0-5)
[2024-10-29 10:25] LABS: Bacteria 3+ /hpf (None Seen); Mucous, Urine 1+ /hpf (<or=2+)
[2024-10-29 10:54] LABS: ALB/GLOB Ratio 1.4 RATIO (0.9-2.4); AST(SGOT) 22 U/L (<=31); Alanine Aminotransfer ALT/SGPT 11 U/L (<=34); Albumin, Serum 3.8 g/dL (3.5-5.0); Alkaline Phosphatase 93 U/L (35-104); Anion Gap 10 (5-15); BUN 14 mg/dL (4-19); BUN/Creat Ratio 20.7 RATIO (10-20); Calcium,Total 8.8 mg/dL (7.6-11.0); Carbon Dioxide 21.5 mmol/L (21.0-32.0); Chloride 106 mmol/L (98-108); Creatinine, Serum 0.68 mg/dL (0.70-1.20); EST Glomerular Filtration Rate 109 (>60); Estimated Creatinine Clearance 111.95 ml/min (50-250); Globulin 2.6 g/dL (2.2-4.2); Glucose 88 mg/dL (70-99); Protein, Total 6.4 g/dL (5.9-8.4); Sodium Level 138 mmol/L (133-145); Total Bilirubin 0.45 mg/dL (0.00-1.30)
--- NOTE | 2024-10-29 10:57 | CT_ITS ---
PROCEDURE: ABDOMEN/PELVIS WITHOUT CONT 10/29/2024 REASON FOR EXAM: RIGHT FLANK PAIN TECHNIQUE: ABDOMEN/PELVIS WITHOUT CONT Noncontrast technique limits evaluation of the abdominal and pelvic viscera. Coronal and Sagittal reconstruction series were provided. One or more dose reduction techniques were used (e.g., Automated exposure control, adjustment of the mA and/or kV according to patient size, use of iterative reconstruction technique). COMPARISON: None FINDINGS: Lung bases: Minimal right pleural effusion with the minimal right basilar atelectasis. Liver: Normal size. No obvious mass. Gallbladder: Unremarkable. Spleen: Normal size. Calcified splenic granuloma. Pancreas: Normal size. No surrounding inflammation. Adrenals: Unremarkable Kidneys: There is a 2.4 cm cyst in the medial midportion of the right kidney. 2 mm calculus in the midportion of the right ureter. Bladder: Unremarkable Reproductive Organs: Enlarged fibroid uterus. Prior bilateral tubal ligation clips are seen. Bowel: Colonic diverticulosis without diverticulitis. Appendix: Unremarkable Lymph nodes: Unremarkable. Vasculature: The abdominal aorta and IVC contours are normal. Noncontrast technique limits evaluation. Peritoneum / Retroperitoneum: Unremarkable Bones: Unremarkable CT/Abdomen/Pelvis without Cont IMPRESSION: 2 mm calculus in the midportion of the right ureter. Small right renal cyst. Small right pleural effusion with right basilar atelectasis. Reading Location: [place] [id number]
[2024-10-29 11:02] VITALS: BP 127/80; PULSE 90; RESP 15; O2SAT 98
[2024-10-29 13:03] VITALS: BP 119/76; PULSE 83; RESP 14; TEMP 36.1; O2SAT 98
== END 2024-10-29 13:05 | disposition home or self-care (01) ==
PROVIDERS: Emergency Provider Emergency Medicine; PCP Family Medicine; Visit Provider Emergency Medicine
DX: J02.9 Acute pharyngitis, unspecified (principal); F17.210 Nicotine dependence, cigarettes, uncomplicated; Z86.718 Personal history of other venous thrombosis and embolism; Z98.51 Tubal ligation status; Z90.49 Acquired absence of other specified parts of digestive tract; N20.1 Calculus of ureter
CPT/HCPCS: 74176; 80053; 81001; 81025; 85025; 87651; 96374; 99283; A4216

== ENCOUNTER 2024-11-09 08:08 | Emergency (ER) | payer OTHER, SELFPAY ==
[2024-11-09 08:09] VITALS: BP 126/82; PULSE 83; RESP 14; TEMP 36.1; O2SAT 98; BMI 26.4
--- NOTE | 2024-11-09 08:46 | CT_ITS ---
PROCEDURE: ABDOMEN/PELVIS WITHOUT CONT 11/09/2024 REASON FOR EXAM: PAIN: RIGHT FLANK PAIN TECHNIQUE: ABDOMEN/PELVIS WITHOUT CONT Noncontrast technique limits evaluation of the abdominal and pelvic viscera. Coronal and Sagittal reconstruction series were provided. One or more dose reduction techniques were used (e.g., Automated exposure control, adjustment of the mA and/or kV according to patient size, use of iterative reconstruction technique). RADIATION DOSE SUMMARY: DLP: 367.07 mGycm COMPARISON: October 29, 2024 FINDINGS: Lung bases: Clear Liver: Unremarkable Gallbladder: Unremarkable Spleen: Unremarkable Pancreas: Unremarkable Adrenals: There is a 1.3 cm right adrenal nodule, Hounsfield units = 48, image 44/182. Kidneys: There is a 1.7 cm cyst in the midpole of the right kidney. There is a 0.2 cm calcification adjacent to the mid right ureter, image 99/182, which may represent a phlebolith. No definite ureteral stone is identified. There is no hydronephrosis. Bladder: Unremarkable Reproductive Organs: Radiopaque densities are noted in the uterus. Bowel: Unremarkable Appendix: Not demonstrated Lymph nodes: There is no pathologic adenopathy by size criteria. Vasculature: Unremarkable Peritoneum / Retroperitoneum: There is no free air or free fluid Bones: There is no acute bony abnormality. CT/Abdomen/Pelvis without Cont IMPRESSION: There is a 1.3 cm right adrenal nodule, Hounsfield units = 48, image 44/182. this does not meet the criteria for benign adrenal adenoma. Further evaluation is indicated which could include CT with contrast with washout, or MRI with in and out of phase sequences. There is a 1.7 cm cyst in the midpole of the right kidney. There is a 0.2 cm c alcification adjacent to the mid right ureter, image 99/182, which may represent a phlebolith. No definite ureteral stone is i dentified. There is no hydronephrosis. Consider excretory urogram for further characterization. [facility]
--- NOTE | 2024-11-09 08:47 | EDS_ITS ---
HPI HPI - GI History of Present Illness Chief Complaint: Flank Pain Detail of Chief Complaint: Right flank pain. Informant: patient Abdominal Pain/Flank Pain Onset: Days Context: Gradual Onset Timing: Continuous Quality: Sharp Location: Right Flank Current Severity: Moderate Maximum Severity: Moderate Worsened by: Movement Relieved by: Nothing Nausea/Vomiting/Emesis GI Symptom: Positive for Nausea and Vomiting Onset: Days Severity: Mild Diarrhea/Melena/Hematochezia GI Symptom: Negative for Diarrhea or Melena Associated Symptoms Associated Symptoms: Negative for Dysuria, Frequency, Hematuria or Urgency Narrative Narrative: 44-year-old female diagnosed with a kidney stone last week on CAT scan 2 mm mid right ureter. States that she is now having constant pain with associated nausea mild vomiting. No fever or chills. No diarrhea. No dysuria. Worse with movement. No prior kidney stone history before the 1 diagnosed last week. Prior appendectomy. No prior back issues or back surgery. Prior similar symptoms: Yes Recent Illness/Hospitalization: No PFSH PFSH Allergy/AdvReac Type Severity Reaction Status Date / Time diphenhydramine (From Allergy Vomiting Verified 11/09/24 08:09 Benadryl) Surgical History No pertinent past surgical history Social History current occupational status: employed Smoking Status: Current every day smoker tobacco type: cigarettes ROS ROS ED ROS Narrative Right flank pain. Nausea. Mild vomiting. Constitutional Constitutional ED: Denies chills or fever(s) ENT ENT ED: Denies ear pain Cardiovascular Cardiovascular: Denies chest pain Respiratory/Chest Respiratory/Chest: Denies cough or dyspnea Gastrointestinal Gastrointestinal: Reports nausea and vomiting; Denies abdominal pain, constipation, diarrhea or melena Genitourinary Genitourinary ED: Denies dysuria or hematuria Musculoskeletal Musculoskeletal: Reports back pain; Denies arthralgias Integumentary Denies abscess Neurologic Neurologic: Denies headache(s) Psychiatric Psychiatric: Denies anxiety Endocrine Endocrinology: Denies polydipsia Hematologic/Lymphatic Hematologic/Lymphatic: Denies easy bleeding Allergic/Immunologic Allergic/Immunologic ED: Denies mouth swelling, tongue swelling or urticaria EXAM Physical Exam Narrative Exam Narrative: 24-year-old female sitting upright in bed. Tearful. No one else present in the room. Vital signs stable afebrile. H EENT exam pupils round react light. Moist mucous membranes. Neck nontender. No lymphadenopathy. Lungs clear to auscultation bilaterally. Heart regular rhythm rate about 80 no murmur. Chest wall ribs nontender. Abdomen soft, nontender, nondistended normal bowel sounds peritoneal signs. No reproducible abdominal pain. Moving all 4 extremities. Neurovascular intact. Nontender no edema. Normal strength. Normal range of motion. Neck nontender no reproducible pain. Neurologically patient awake alert. Answering questions following commands. No focal motor deficits. Const Vital Signs: 11/09/24 08:09 11/09/24 10:33 Temperature 97 F L 98.6 F Temperature Source Temporal Pulse Rate 83 55 L Respiratory Rate 14 16 Blood Pressure 126/82 H 114/72 Blood Pressure Mean 96 86 Pulse Ox 98 98 Oxygen Delivery Method Room Air Positive well nourished and well developed; Negative for cachectic, contractures or unkempt General Appearance ED: well developed; Negative for unkempt, cachectic or contractures Nutritional Appearance: Negative for cachectic HEENT Reports moist mucous membranes normocephalic and atraumatic Eyes PERRL and EOMs intact bilaterally Neck no lymphadenopathy, supple and no JVD Resp normal respiratory effort and clear to auscultation bilaterally Cardio regular rate, regular rhythm, S1 normal heart sound, S2 normal heart sound and no murmurs GI non-tender, non-distended and no masses Palpation: soft; Negative for tender, guarding or rebound tenderness present Back/Spine no CVA tenderness General Back: Negative for CVA tenderness Cervical Spine: Negative for cervical spine tenderness Thoracic Spine / Upper Back: Negative for thoracic spinal tenderness Lumbar Spine / Lower Back: Negative for lumbar spinal tenderness Extremity full ROM General Extremety ED: Negative for edema or tenderness General Extremity: Negative for edema Neuro CN's II-XII intact bilaterally and moves all extremities Sensorium / Orientation: alert, oriented to person, oriented to place and oriented to time; Negative for orientation impaired, confused or lethargic Motor Exam: strength 5/5 throughout Psych mental status grossly normal and thought process normal Appearance: Negative for unkempt Attitude: No agitated Mood & Affect: Negative for depressed, anxious or tearful Skin no wounds General Skin Exam: Negative for jaundice Lesions: no lesions Rashes: no rashes MDM MDM MDM Narrative Medical decision making narrative: 44-year-old female right flank pain recent diagnosis kidney stone. Complaining of continued right flank pain with nausea vomiting. CAT scan labs to be obtained. I reviewed her most recent visit and CAT scan results and labs. She will be given morphine and Toradol for pain and Zofran for nausea. Repeat exam patient doing well around 11:28 AM. Feeling improved after the morphine and Toradol. I went over her test results with her that were basically normal. There is no signs of kidney stone or any other significant acute abnormality on the CAT scan. Repeat exam her back's unremarkable. As is her abdomen and right hip. She is comfortable being discharged home. Motrin Tylenol for pain. Outpatient follow-up as needed. Return if worse. History & Record Review Discussion w/independent historian: Patient Additional record(s) reviewed:: Prior inpatient record, Prior outpatient record, Prior ED visit and Prior labs Lab Data Attestation: I reviewed the patient's lab results. Lab results narrative: CBC shows a white count 8.5 H&H 12 and 39. Platelets 271. Electrolytes show sodium 140 9. BUN and creatinine 9 and 0.6. Glucose 92. UA normal. No white or red cells. No bacteria or nitrates. Negative. CAT scan was basically shows chronic changes but no acute stone. Labs: Laboratory Results - last 24 hr 11/09/24 11/09/24 09:03 09:37 WBC 8.5 RBC 4.68 Hgb 12.3 Hct 39.1 MCV 83.5 MCH 26.3 L MCHC 31.5 L RDW Std Deviation 46.4 H RDW Coeff of Chris 15.3 H Plt Count 271 MPV 11.0 Immature Gran % (Auto) 0.600 Neut % (Auto) 72.9 H Lymph % (Auto) 14.9 L Rogers % (Auto) 7.9 Eos % (Auto) 3.1 Baso % (Auto) 0.6 Absolute Neuts (auto) 6.2 Absolute Lymphs (auto) 1.26 Nucleated RBC % 0 Sodium 140 Potassium 4.1 Chloride 108 Carbon Dioxide 22.9 Anion Gap 9 BUN 9 Creatinine 0.63 L Estim Creat Clear Calc 120.27 Est GFR (MDRD) Non-Af 112 BUN/Creatinine Ratio 15.1 Glucose 92 Calcium 8.9 Urine Color Yellow Urine Clarity Sl. Cloudy Urine pH 7.0 Ur Specific Flasher 1.010 Urine Protein 15 H Urine Glucose (UA) Normal Urine Ketones Negative Urine Occult Blood Negative Urine Nitrite Negative Urine Bilirubin Negative Urine Urobilinogen Normal Ur Leukocyte Esterase Negative Urine RBC 0 SEEN Urine WBC 0 SEEN Ur Squamous Epith Cells 0-5 SEEN Urine Bacteria 0 SEEN Urine Mucus 0 SEEN Radiography Diagnostic Testing: Clinical Impression(s) from Imaging Studies Abdomen/Pelvis CT 11/09/24 08:46 IMPRESSION: There is a 1.3 cm right adrenal nodule, Hounsfield units = 48, image 44/182. this does not meet the criteria for benign adrenal adenoma. Further evaluation is indicated which could include CT with contrast with washout, or MRI with in and out of phase sequences. There is a 1.7 cm cyst in the midpole of the right kidney. There is a 0.2 cm calcification adjacent to the mid right ureter, image 99/182, which may represent a phlebolith. No definite ureteral stone is identified. There is no hydronephrosis. Consider excretory urogram for further characterization. Reading [facility] Discharge Plan Triage Chief Complaint: Flank Pain ED Provider: Lino Watson Dx/Rx/DC Orders Clinical Impression: Acute flank pain Instructions: ED Pain, Acute, Uncertain Cause Primary Care Provider: Kobe Rey Referrals: Kobe Rey MD [Primary Care Provider] - 1 Week if not improving Activity Restrictions/Additional Instructions: Your test, CAT scan and urine were all normal. No signs of kidney stone or infection today. Motrin and Tylenol for pain. Hot shower, warm bath and massage. Follow-up with your doctor if not improving. No specific cause for your pain today. It may be musculoskeletal. Your tests were all unremarkable. Print Language: Slovenian Disposition Disposition: Home, Self Care
[2024-11-09 09:24] LABS: Hematocrit 39.1 % (37-47); Hemoglobin 12.3 g/dL (12.0-15.0); Immature Granulocytes Count 0.050 X10^3/uL (0.0-0.0); Mean Corp Hgb Conc 31.5 g/dL (32-36); Mean Corpuscular Volume 83.5 fL (81-99); Mean Platelet Vol. 11.0 fl (6.2-12.0); NRBC Flagged by Analyzer 0 % (0-5); Platelet Count 271 K/mm3 (150-450); RBC Distribution Width CV 15.3 % (11.6-14.6); RBC Distribution Width SD 46.4 fl (35.1-43.9); Red Blood Count 4.68 M/mm3 (4.2-5.4); White Blood Count 8.5 K/mm3 (4.4-11.0)
[2024-11-09] MEDS: Ketorolac 30 MG/ML Syringe IV (09:27)
[2024-11-09 09:46] LABS: Mucous, Urine 0 SEEN /hpf (<or=2+); Red Blood Cells-Urine 0 SEEN /hpf (0-5)
[2024-11-09 09:50] LABS: Color, Urine Yellow (Yellow); Glucose, Dipstick Normal (Normal); Ketone-Dipstick Negative (Negative); Leukocyte Esterase-Dipstick Negative /ul (Negative); Nitrite-Dipstick Negative (Negative); Occult Blood-Urine Negative /ul (Negative); Protein-Dipstick 15 mg/dl (Negative); Specific Gravity, Urine 1.010 (1.002-1.030); Urine Bilirubin Dipstick Negative (Negative)
[2024-11-09 09:58] LABS: Anion Gap 9 (5-15); BUN 9 mg/dL (4-19); BUN/Creat Ratio 15.1 RATIO (10-20); Calcium,Total 8.9 mg/dL (7.6-11.0); Carbon Dioxide 22.9 mmol/L (21.0-32.0); Chloride 108 mmol/L (98-108); Estimated Creatinine Clearance 120.27 ml/min (50-250); Glucose 92 mg/dL (70-99); Potassium 4.1 mmol/L (3.3-5.1)
[2024-11-09 10:06] LABS: Squamous Epithelial Cells - UA 0-5 SEEN /hpf (5-10)
[2024-11-09 10:33] VITALS: BP 114/72; PULSE 55; RESP 16; TEMP 37; O2SAT 98
== END 2024-11-09 11:40 | disposition home or self-care (01) ==
PROVIDERS: Emergency Provider Emergency Medicine; PCP Family Medicine; Visit Provider Emergency Medicine
DX: R10.9 Unspecified abdominal pain (principal); R11.2 Nausea with vomiting, unspecified; F17.210 Nicotine dependence, cigarettes, uncomplicated; Z90.49 Acquired absence of other specified parts of digestive tract
CPT/HCPCS: 74176; 80048; 81001; 85025; 96374; 96375; 99283; A4216; J2405